=== PATIENT | male | born 1970 | race African-American/Black ===

== ENCOUNTER 2018-08-13 00:36 | Emergency (ER) | payer MEDICAID ==
[~2018-08-13] VITALS: Ht 182.9 cm; Wt 197.0 kg
[2018-08-13 00:38] VITALS: BP 171/93
[2018-08-13] MEDS ORDERED: LISI-170 PO (00:41)
[2018-08-13] MEDS ORDERED: HYDR25TA6 PO (00:41)
== END 2018-08-13 01:26 | disposition home or self-care (01) ==
LOC: ED 01:03
DX: I10 Essential (primary) hypertension (principal); Z72.9 Problem related to lifestyle, unspecified
CPT/HCPCS: 99283